=== PATIENT | female | born 1955 ===

== ENCOUNTER 2024-01-29 16:19 | Emergency (ER) | payer MEDICARE, BC ==
[2024-01-29] MEDS: Lidocaine 1% 5 ML VIAL INJECT ONE (16:47)
[2024-01-29] MEDS: Bacitracin Oint 1 GM U/D Packet TOP ONE (17:13)
== END 2024-01-29 17:10 | disposition home or self-care (01) ==
LOC: DL.ED 16:19
DX: S60.453A Superficial foreign body of left middle finger, initial encounter (principal); Z79.891 Long term (current) use of opiate analgesic; Z79.899 Other long term (current) drug therapy; Z90.49 Acquired absence of other specified parts of digestive tract; W45.8XXA Other foreign body or object entering through skin, initial encounter
CPT/HCPCS: 64450; 99282; 99283-25; A9270-GY; J3490